=== PATIENT | male | born 1990 | race Caucasian/White ===

== ENCOUNTER → 2016-11-02 | Outpatient (CLI) | payer OTHER ==
--- NOTE | 2016-11-02 13:17 | XR ---
EXAMINATION TYPE: XR wrist complete LT DATE OF EXAM: 11/02/2016 1:14 PM COMPARISON: NONE HISTORY: Pain TECHNIQUE: 4 views submitted. FINDINGS: The osseous structures are intact. The joint spaces are preserved and there is no acute fracture or dislocation. IMPRESSION: 1. No definite acute fracture or dislocation if symptoms persist, follow-up study in 7 to 10 days wo uld be suggested
== END | disposition home or self-care (01) ==
LOC: RADXRMAIN 12:57
PROVIDERS: ATTEND Emergency Medicine
DX: S63.502A Unspecified sprain of left wrist, initial encounter (principal)

== ENCOUNTER → 2016-12-22 | Outpatient (CLI) | payer OTHER ==
--- NOTE | 2016-12-22 15:44 | FL ---
EXAMINATION TYPE: FL arthrogram wrist LT DATE OF EXAM: 12/22/2016 2:37 PM HISTORY: 26 year-old male left wrist sprain and pain for 3 months. Patient also reports volar sided p ain that shoots up the forearm. PROCEDURES: 1. Left wrist fluoroscopy. 2. Left wrist arthrogram. TECHNIQUE: The procedure, risks, and alternatives, were discussed with the patient, who requested that charlette schmitz. The consent form was signed, and teach-back occurred. The site/side of the procedure was marked with a line with participation by the patient. The accompan aron paperwork was verified for consistency. A directed history and physical exam was performed prior to the procedure. Medication reconciliation was performed by ancillary personnel. A critical pause was performed with assisting personnel just pr ior to the procedure, and the patient's identity was confirmed using 2 identifiers. Imaging guidance was utilized to select the precise skin entry point just prior to the procedure. The left wrist was prepped and draped in the usual sterile fashion and local 1% lidocaine anesthesia was instilled. Under fluoroscopic guidance, a 25-gauge short needle was introduced into the dorsal r adiocarpal joint along the radial aspect of the wrist. Appropriate needle tip position was confirmed after a small amount of contrast injection. Approximately 3 mm of a mixture of Omnipaque 240 iodinated contrast and MultiHance was injected into the wrist joint. The needle was then removed. The patient tolerated the procedure well. There was no immediate complication. After the procedure, the reported feeling slightly sick and nauseous. Nursing staff checked blood pre ssure and the patient was seated. Symptoms subsided. Estimated blood loss was minimal. The patient was counseled on postprocedure precautions including monitoring for signs of infection. IMPRESSION: Technically successful left wrist arthrogram injection for MRI. No immediate complication.
--- NOTE | 2016-12-25 21:15 | MR ---
EXAMINATION TYPE: MR wrist LT w con DATE OF EXAM: 12/22/2016 4:14 PM COMPARISON: Correlation radiographs 11/02/2016 HISTORY: 26-year-old male with left wrist pain for 4 months. Patient also reports volar sided pain t hat shoots up the forearm. Technique: Multiplanar, multisequence images of the left wrist were obtained after intra-articular ad ministration of a gadolinium mixture. Refer to arthrogram injection of the same day for further detai ls. FINDINGS: There is adequate contrast distention of the wrist joint. No extension of contrast into the mid carpa l compartment or distal radial ulnar joint. There is some degenerative signal within the dorsal and proximal portion of the scapholunate ligament without a discrete tear or interval widening. The lunotriquetral ligament is intact. Overall cartilage is maintained without evidence for bony erosions. There is tendinotic signal within the extensor carpi ulnaris at the level of the ulnar styloid proces s and possible short segment longitudinal split, axial T2 FS image 7 and 8. Otherwise, the dorsal ext ensor and volar flexor tendons are within normal limits. Some iatrogenic contrast is present within t he second and third dorsal extensor compartment tendon sheaths. Median nerve is normal caliber with cross-sectional area of 11.5 sq mm at the level of the distal car pal crease. The triangular fibrocartilage remains intact. However, there is a small carpal sited tear along the r adial aspect of the dorsal radioulnar ligament, coronal image 5. The distal radioulnar joint is intac t. There is focal increased bone marrow signal along the ulnar proximal aspect of the lunate bone. Addit ionally, there is incidental type II lunate but no significant degenerative changes at the lunate ham ate articulation. Otherwise, the visualized musculature and osseous structures are within normal limi ts. IMPRESSION: 1. Small carpal sided tear of the dorsal radioulnar ligament. The articular disc of the TFC and the r emainder of the TFCC remain intact. 2. There is focal bone marrow edema along the ulnar proximal aspect of the lunate that could represen t a mild bone bruise. Correlate for any chronic ulnar-sided wrist pain that would suggest ulnar impac tion syndrome. 3. Degenerative signal within the scapholunate ligament without tear. 4. Some tendinosis and possible short segment split tear of the ECU. 5. Incidental type II lunate without any findings to suggest hamatolunate impingement.
== END | disposition home or self-care (01) ==
LOC: RADFLMAIN 13:01
PROVIDERS: ATTEND Emergency Medicine
DX: S63.522A Sprain of radiocarpal joint of left wrist, initial encounter (principal)
CPT/HCPCS: 25246; 73115; 73222; Q9966; A9577

== ENCOUNTER 2023-08-18 16:12 | Emergency (ER) | payer OTHER ==
[2023-08-18 16:26] VITALS: RESP 18
[2023-08-18] MEDS ORDERED: KETOROLAC 15 MG/ML 1 ML VIAL IM STA (17:07)
[2023-08-18] MEDS ORDERED: ORPHENADRINE 30 MG/ML 2 ML VIAL IM STA (17:07)
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
[2023-08-18 19:04] VITALS: BP 129/89; PULSE 83; TEMP 98.4
== END 2023-08-18 18:53 | disposition home or self-care (01) ==
LOC: EC 16:12
DX: M54.2 Cervicalgia (principal); V49.50XA Passenger injured in collision with unspecified motor vehicles in traffic accident, initial encounter
CPT/HCPCS: 72128; 72125; 72131; 99284; 96372 ×2; J2360; J1885